=== PATIENT | female | born 1950 | race Hispanic/Latino ===

== ENCOUNTER 2023-04-26 11:36 | Inpatient (IN) | payer MEDICARE ==
[~2023-04-26] VITALS: Ht 165.1 cm; Wt 117.9 kg
[2023-04-26 13:03] LABS: CLARITY,URINE SL CLOUDY (CLEAR); COLOR,URINE YELLOW (YELLOW); PH,URINE 6 (5 - 7)
[2023-04-26 13:04] LABS: BILIRUBIN,URINE NEGATIVE (NEGATIVE); GLUCOSE, URINE NEGATIVE (NEGATIVE); KETONES,URINE NEGATIVE (NEGATIVE); LEUKOCYTE ESTERASE ,URINE SMALL (NEGATIVE); NITRITE,URINE NEGATIVE (NEGATIVE); PROTEIN,URINE DIPSTICK NEGATIVE (NEGATIVE); URINE UROBILINOGEN 0.2 mg/dL (0.2 - 1)
[2023-04-26 13:14] LABS: BACTERIA,URINE MANY /HPF; EPITHELIAL CELLS,URINE RARE /LPF; RBC,URINE 0-5 /HPF (0-5); WBC,URINE (MAN) 21-50 /HPF (0-5)
[2023-04-26 13:19] LABS: BASOPHILS % 0.6 % (0.0-1.0); EOSINOPHILS # (AUTO) 0.1 (0.0-0.4); EOSINOPHILS % 1.6 % (0.0-6.0); HEMATOCRIT 32.8 % (34.2-44.1); HEMOGLOBIN 10.8 g/dL (12.0-16.0); LYMPHOCYTES # (AUTO) 1.4 (1.0-3.2); LYMPHOCYTES % 19.5 % (18.0-39.1); MEAN CORPUSCULAR HEMOGLOBIN 31.6 pg (28-32); MEAN CORPUSCULAR HGB CONC 32.9 g/dL (31-35); MEAN CORPUSCULAR VOLUME 95.9 fL (81-99); MONOCYTES # (AUTO) 0.3 (0.2-0.8); MONOCYTES % 4.7 % (4.4-11.3); NEUTROPHILS # (AUTO) 5.1 (2.1-6.9); PLATELET COUNT 156 x10e3/uL (140-360); RED BLOOD COUNT 3.42 x10e6/uL (3.6-5.1); RED CELL DISTRIBUTION WIDTH 17.2 % (11.7-14.4); WHITE BLOOD COUNT 6.99 x10e3/uL (4.8-10.8)
[2023-04-26 13:33] LABS: ALBUMIN/GLOBULIN RATIO 0.6 (0.8-2.0); BILIRUBIN,TOTAL 2.9 mg/dL (0.2-1.2); CALCIUM 9.1 mg/dL (8.4-10.2); CREATININE, SERUM 2.91 mg/dL (0.57-1.11); TOTAL PROTEIN 8.4 g/dL (6.5-8.1)
[2023-04-26] MEDS ORDERED: ONDANSETRON HCL INJ 2MG/ML 2ML 2 MG/ML VIAL IV PRN (15:00)
[2023-04-26] MEDS ORDERED: SODIUM CHLORIDE FLUSH 10 ML SYR INJ PRN (15:00)
[2023-04-26] MEDS ORDERED: METOPROLOL TARTRATE INJ 1 MG/ML VIAL IV PRN (16:15)
[2023-04-26] MEDS ORDERED: SIMETHICONE 80 MG CHEW PO PRN (16:15)
[2023-04-26] MEDS ORDERED: ALBUTEROL/IPRATROPIUM 3 ML NEB NEB PRN (16:15)
[2023-04-26] MEDS ORDERED: ACETAMINOPHEN 325 MG TAB PO PRN (16:15)
[2023-04-26] MEDS ORDERED: DOCUSATE SODIUM 100 MG CAP PO PRN (16:15)
[2023-04-26] MEDS ORDERED: MELATONIN 3 MG TAB PO PRN (16:15)
[2023-04-26 16:41] LABS: CHOL/HDL RATIO 4.1 (3.0-3.6)
[2023-04-26 18:31] VITALS: BP 99/65; PULSE 71; RESP 18; TEMP 96.2; O2SAT 92
[2023-04-26 18:37] VITALS: BP 99/65; PULSE 71; RESP 18; TEMP 96.5; O2SAT 93
[2023-04-26 19:16] VITALS: PULSE 69; RESP 18; O2SAT 95
[2023-04-26] MEDS: SODIUM BICARBONATE 650 MG TAB PO SCH (20:43)
[2023-04-26 20:58] VITALS: BP 89/52; PULSE 71; RESP 19; TEMP 98.3; O2SAT 97
[2023-04-26 23:55] VITALS: BP 89/52; PULSE 71; RESP 19; TEMP 98.3; O2SAT 97
[2023-04-27] VITALS (8 sets, daily range): BP systolic 91–110; BP diastolic 55–67; PULSE 72–84; RESP 18–20; TEMP 97.3–97.8; O2SAT 96–100
[2023-04-27] MEDS ORDERED: METOLAZONE5 MG PO (01:17)
[2023-04-27] MEDS ORDERED: POTASSIUM CHLO20 ME1 PO (01:17)
[2023-04-27] MEDS ORDERED: METOPROLOL TART25 MG PO (01:17)
[2023-04-27] MEDS ORDERED: FUROSEMIDE40 MG PO (01:17)
[2023-04-27] MEDS ORDERED: FERROUS SULFAT325 MG PO (01:17)
[2023-04-27] MEDS ORDERED: LEVOTHYROXINE50 MCG PO (01:17)
[2023-04-27] MEDS ORDERED: PROTONIX20 MG PO (01:17)
[2023-04-27 06:13] LABS: BASOPHILS % 0.1 % (0.0-1.0); EOSINOPHILS # (AUTO) 0.2 (0.0-0.4); EOSINOPHILS % 2.8 % (0.0-6.0); HEMATOCRIT 29.1 % (34.2-44.1); HEMOGLOBIN 9.7 g/dL (12.0-16.0); LYMPHOCYTES # (AUTO) 1.7 (1.0-3.2); LYMPHOCYTES % 22.6 % (18.0-39.1); MEAN CORPUSCULAR HEMOGLOBIN 31.2 pg (28-32); MEAN CORPUSCULAR HGB CONC 33.3 g/dL (31-35); MEAN CORPUSCULAR VOLUME 93.6 fL (81-99); MONOCYTES # (AUTO) 0.5 (0.2-0.8); MONOCYTES % 6.6 % (4.4-11.3); NEUTROPHILS # (AUTO) 5.1 (2.1-6.9); NEUTROPHILS % 67.5 % (38.7-80.0); PLATELET COUNT 140 x10e3/uL (140-360); RED BLOOD COUNT 3.11 x10e6/uL (3.6-5.1); RED CELL DISTRIBUTION WIDTH 17.1 % (11.7-14.4); WHITE BLOOD COUNT 7.53 x10e3/uL (4.8-10.8)
[2023-04-27 06:49] LABS: ALBUMIN 2.4 g/dL (3.5-5.0); ALBUMIN/GLOBULIN RATIO 0.5 (0.8-2.0); ANION GAP 14.8 mmol/L (8-16); BILIRUBIN,TOTAL 2.6 mg/dL (0.2-1.2); CALCIUM 8.8 mg/dL (8.4-10.2); CREATININE, SERUM 2.8 mg/dL (0.57-1.11); POTASSIUM 3.8 mmol/L (3.5-5.1)
[2023-04-27] MEDS: SODIUM BICARBONATE 650 MG TAB PO SCH ×2 (09:00→17:26)
[2023-04-27] MEDS ORDERED: ONDANSETRON HCL 4 MG ORAL DISINTEGRATING TAB PO PRN (10:15)
[2023-04-28] VITALS (9 sets, daily range): BP systolic 93–111; BP diastolic 58–69; PULSE 76–86; RESP 17–18; TEMP 97.3–97.7; O2SAT 95–99
[2023-04-28 07:25] LABS: BASOPHILS % 0.6 % (0.0-1.0); EOSINOPHILS # (AUTO) 0.2 (0.0-0.4); EOSINOPHILS % 2.8 % (0.0-6.0); HEMATOCRIT 28.2 % (34.2-44.1); HEMOGLOBIN 9.2 g/dL (12.0-16.0); LYMPHOCYTES # (AUTO) 1.8 (1.0-3.2); LYMPHOCYTES % 26.2 % (18.0-39.1); MEAN CORPUSCULAR HEMOGLOBIN 31.2 pg (28-32); MEAN CORPUSCULAR HGB CONC 32.6 g/dL (31-35); MEAN CORPUSCULAR VOLUME 95.6 fL (81-99); MONOCYTES # (AUTO) 0.5 (0.2-0.8); MONOCYTES % 7.6 % (4.4-11.3); NEUTROPHILS # (AUTO) 4.2 (2.1-6.9); NEUTROPHILS % 62.5 % (38.7-80.0); PLATELET COUNT 131 x10e3/uL (140-360); RED BLOOD COUNT 2.95 x10e6/uL (3.6-5.1); RED CELL DISTRIBUTION WIDTH 17.1 % (11.7-14.4); WHITE BLOOD COUNT 6.73 x10e3/uL (4.8-10.8)
[2023-04-28 07:36] LABS: ALBUMIN 2.4 g/dL (3.5-5.0); ALBUMIN/GLOBULIN RATIO 0.5 (0.8-2.0); ANION GAP 14.8 mmol/L (8-16); BILIRUBIN,TOTAL 2.1 mg/dL (0.2-1.2); CALCIUM 8.5 mg/dL (8.4-10.2); CREATININE, SERUM 2.61 mg/dL (0.57-1.11); PHOSPHORUS 3.5 MG/DL (2.3-4.7); POTASSIUM 3.8 mmol/L (3.5-5.1); TOTAL PROTEIN 6.8 g/dL (6.5-8.1)
[2023-04-28] MEDS: SODIUM BICARBONATE 650 MG TAB PO SCH ×2 (10:19→17:09)
[2023-04-28 17:50] LABS: CREATININE,URINE RANDOM 45.84 mg/dL (47-110)
[2023-04-29] VITALS (10 sets, daily range): BP systolic 95–112; BP diastolic 59–82; PULSE 51–103; RESP 18–20; TEMP 97.5–98.4; O2SAT 92–100
[2023-04-29 06:32] LABS: CALCIUM 8.7 mg/dL (8.4-10.2); CREATININE, SERUM 2.35 mg/dL (0.57-1.11)
[2023-04-29] MEDS: SODIUM BICARBONATE 650 MG TAB PO SCH ×2 (09:12→16:35)
[2023-04-30] VITALS (9 sets, daily range): BP systolic 90–107; BP diastolic 50–66; PULSE 80–133; RESP 16–20; TEMP 97.7–98.5; O2SAT 93–100
[2023-04-30 06:28] LABS: ANION GAP 12.9 mmol/L (8-16); CALCIUM 8.7 mg/dL (8.4-10.2); CREATININE, SERUM 2.16 mg/dL (0.57-1.11); POTASSIUM 3.9 mmol/L (3.5-5.1)
[2023-04-30] MEDS: SODIUM BICARBONATE 650 MG TAB PO SCH ×2 (09:22→16:37)
[2023-04-30] MEDS: MUPIROCIN 2% OINT 22 GM TUBE TOP SCH (15:00)
[2023-05-01] VITALS (8 sets, daily range): BP systolic 93–118; BP diastolic 56–71; PULSE 74–140; RESP 16–20; TEMP 97.7–98.1; O2SAT 94–100
[2023-05-01] MEDS: SODIUM BICARBONATE 650 MG TAB PO SCH ×2 (09:46→16:39)
[2023-05-01] MEDS: MUPIROCIN 2% OINT 22 GM TUBE TOP SCH (13:28)
[2023-05-02] VITALS (10 sets, daily range): BP systolic 98–116; BP diastolic 48–74; PULSE 82–136; RESP 16–21; TEMP 97.6–98.4; O2SAT 94–98
[2023-05-02 06:06] LABS: ALBUMIN 2.4 g/dL (3.5-5.0); ALBUMIN/GLOBULIN RATIO 0.5 (0.8-2.0); ANION GAP 13.1 mmol/L (8-16); BILIRUBIN,TOTAL 1.6 mg/dL (0.2-1.2); CALCIUM 8.6 mg/dL (8.4-10.2); CREATININE, SERUM 1.59 mg/dL (0.57-1.11); POTASSIUM 4.1 mmol/L (3.5-5.1); TOTAL PROTEIN 7.1 g/dL (6.5-8.1)
[2023-05-02] MEDS: LEVOTHYROXINE SODIUM 100 MCG TAB PO SCH (06:11)
[2023-05-02] MEDS: PANTOPRAZOLE SOD 40 MG TABEC PO SCH (09:50)
[2023-05-02] MEDS: SODIUM BICARBONATE 650 MG TAB PO SCH ×2 (09:50→17:25)
[2023-05-02] MEDS: HEPARIN SOD (PORCINE) 5,000 UNIT/ML VIAL SC SCH ×2 (09:51→22:36)
[2023-05-02 10:40] LABS: THYROID STIMULATING HORMONE 11.554 uIU/mL (0.350-4.940)
[2023-05-02 16:41] LABS: ANION GAP 12.1 mmol/L (8-16); CALCIUM 8.3 mg/dL (8.4-10.2); CREATININE, SERUM 1.53 mg/dL (0.57-1.11); POTASSIUM 4.1 mmol/L (3.5-5.1)
[2023-05-02] MEDS: MUPIROCIN 2% OINT 22 GM TUBE TOP SCH (17:26)
[2023-05-03] VITALS (10 sets, daily range): BP systolic 93–115; BP diastolic 51–66; PULSE 79–90; RESP 16–22; TEMP 98–98.6; O2SAT 96–100
[2023-05-03 05:47] LABS: BASOPHILS # (AUTO) 0.1 (0.0-0.1); BASOPHILS % 0.7 % (0.0-1.0); EOSINOPHILS # (AUTO) 0.3 (0.0-0.4); EOSINOPHILS % 3.8 % (0.0-6.0); HEMOGLOBIN 9.7 g/dL (12.0-16.0); LYMPHOCYTES # (AUTO) 1.7 (1.0-3.2); LYMPHOCYTES % 24.9 % (18.0-39.1); MEAN CORPUSCULAR HEMOGLOBIN 31.2 pg (28-32); MEAN CORPUSCULAR HGB CONC 32.3 g/dL (31-35); MEAN CORPUSCULAR VOLUME 96.5 fL (81-99); MONOCYTES # (AUTO) 0.6 (0.2-0.8); MONOCYTES % 9.3 % (4.4-11.3); NEUTROPHILS # (AUTO) 4.1 (2.1-6.9); NEUTROPHILS % 60.7 % (38.7-80.0); PLATELET COUNT 127 x10e3/uL (140-360); RED BLOOD COUNT 3.11 x10e6/uL (3.6-5.1); RED CELL DISTRIBUTION WIDTH 17.5 % (11.7-14.4); WHITE BLOOD COUNT 6.79 x10e3/uL (4.8-10.8)
[2023-05-03] MEDS: LEVOTHYROXINE SODIUM 100 MCG TAB PO SCH (05:54)
[2023-05-03 06:28] LABS: ANION GAP 11.1 mmol/L (8-16); CALCIUM 8.6 mg/dL (8.4-10.2); CREATININE, SERUM 1.39 mg/dL (0.57-1.11); POTASSIUM 4.1 mmol/L (3.5-5.1)
[2023-05-03] MEDS: HEPARIN SOD (PORCINE) 5,000 UNIT/ML VIAL SC SCH ×2 (08:18→21:00)
[2023-05-03] MEDS: PANTOPRAZOLE SOD 40 MG TABEC PO SCH (08:18)
[2023-05-03] MEDS: SODIUM BICARBONATE 650 MG TAB PO SCH (08:18)
[2023-05-03] MEDS: MUPIROCIN 2% OINT 22 GM TUBE TOP SCH (08:18)
[2023-05-04] VITALS (9 sets, daily range): BP systolic 91–109; BP diastolic 56–66; PULSE 76–136; RESP 20–22; TEMP 97.9–98.4; O2SAT 95–100
[2023-05-04] MEDS: LEVOTHYROXINE SODIUM 100 MCG TAB PO SCH (05:26)
[2023-05-04 06:56] LABS: ANION GAP 11.1 mmol/L (8-16); CALCIUM 8.3 mg/dL (8.4-10.2); CREATININE, SERUM 1.31 mg/dL (0.57-1.11); MAGNESIUM 1.9 MG/DL (1.3-2.1); POTASSIUM 4.1 mmol/L (3.5-5.1)
[2023-05-04] MEDS: MUPIROCIN 2% OINT 22 GM TUBE TOP SCH (09:00)
[2023-05-04] MEDS: FUROSEMIDE INJ 10 MG/ML 2 ML VIAL IV SCH ×2 (09:58→10:21)
[2023-05-04] MEDS: HEPARIN SOD (PORCINE) 5,000 UNIT/ML VIAL SC SCH (10:00)
[2023-05-04] MEDS: AMIODARONE HCL 200 MG TAB PO SCH ×2 (10:31→21:26)
[2023-05-04] MEDS: SODIUM BICARBONATE 650 MG TAB PO SCH ×2 (11:20→17:50)
[2023-05-04] MEDS ORDERED: FUROSEMIDE 20 MG TAB PO SCH (17:00)
[2023-05-04] MEDS ORDERED: DIGOXIN INJ 0.25 MG/ML 2 ML AMP IV ONE (17:55)
[2023-05-04] MEDS ORDERED: APIXABAN 5 MG TABLET PO SCH (21:00)
[2023-05-05 00:27] VITALS: BP 109/63; PULSE 93; RESP 20; TEMP 97.9; O2SAT 98
[2023-05-05] MEDS ORDERED: FAMOTIDINE 20 MG TAB PO SCH (07:30)
[2023-05-05] MEDS ORDERED: PANTOPRAZOLE SOD 40 MG TABEC PO SCH (09:00)
[2023-05-05] MEDS ORDERED: METOPROLOL TARTRATE 25 MG TAB PO SCH (09:00)
[2023-05-05 20:15] LABS: OSMOLALITY,SERUM OSMOMETER 289 mOsmol/kg (280-301)
[2023-05-05 22:21] LABS: OSMOLALITY,URINE 542 mOsmol/kg (.)
== END 2023-05-05 00:23 | DRG 689 ==
LOC: ER 12:04 → ERHOLD 14:48 → MED/SURG3 17:47
PROVIDERS: ADMIT Internal Medicine; ATTEND Internal Medicine
DX: N39.0 Urinary tract infection, site not specified (principal); G93.41 Metabolic encephalopathy; I50.23 Acute on chronic systolic (congestive) heart failure; N17.0 Acute kidney failure with tubular necrosis; I13.0 Hypertensive heart and chronic kidney disease with heart failure and stage 1 through stage 4 chronic kidney disease, or unspecified chronic kidney disease; E87.20 Acidosis, unspecified; Z68.41 Body mass index [BMI] 40.0-44.9, adult; E87.1 Hypo-osmolality and hyponatremia; N18.32 Chronic kidney disease, stage 3b; B96.20 Unspecified Escherichia coli [E. coli] as the cause of diseases classified elsewhere; E86.0 Dehydration; M34.9 Systemic sclerosis, unspecified; E66.01 Morbid (severe) obesity due to excess calories; I27.29 Other secondary pulmonary hypertension; I95.9 Hypotension, unspecified; R33.9 Retention of urine, unspecified; N20.0 Calculus of kidney; R53.81 Other malaise; R00.0 Tachycardia, unspecified; D64.9 Anemia, unspecified; E03.9 Hypothyroidism, unspecified; Z11.52 Encounter for screening for COVID-19; Z13.1 Encounter for screening for diabetes mellitus; Z74.01 Bed confinement status; Z79.899 Other long term (current) drug therapy
CPT/HCPCS: 36415; 74176; 76770; 80048; 80053; 80061; 81001; 82570; 82607; 83036; 83540; 83735; 83880; 83930; 83935; 84100; 84300; 84443; 84466; 84484; 85025; 87086; 87186; 93005; 93306; 94799; 99252; 99284; J0696; J1160; J1644; J1940; U0002